=== PATIENT | female | born 1975 ===

== ENCOUNTER 2018-11-14 21:03 | Emergency (ER) | payer OTHER ==
[~2018-11-14] VITALS: Ht 175.3 cm; Wt 100.7 kg
--- NOTE | 2018-11-14 21:36 | NUR ---
BIBS. C/O "[facility]F FEW DAYS AGO. BEEN FEELING DIZZY. LEFT AMA FROM [facility]"AOX4. +DIZZY NOTED. -N/V/D. VSS
[2018-11-14] MEDS ORDERED: IPRATROPIUM NEB FS 0.5 MG/2.5 ML AMPUL.NEB NEB ONE (22:00)
[2018-11-14] MEDS ORDERED: ALBUTEROL FS 2.5 MG/3 ML VIAL.NEB NEB ONE (22:00)
[2018-11-14] MEDS ORDERED: ALBUTEROL FS 2.5 MG/3 ML VIAL.NEB ONE (22:07)
[2018-11-14] MEDS ORDERED: IPRATROPIUM NEB FS 0.5 MG/2.5 ML AMPUL.NEB ONE (22:07)
[2018-11-14] MEDS ORDERED: KETOROLAC TROMETHAMINE INJ 60 MG/2 ML VIAL IM ONE (23:00)
[2018-11-14] MEDS ORDERED: KETOROLAC TROMETHAMINE INJ 30 MG/ML VIAL ONE (23:03)
[2018-11-15 01:12] LABS: BASOPHILS # (AUTO) 0.1 /CMM (0.0-0.2); BASOPHILS % (AUTO) 0.8 % (0.0-2.0); EOSINOPHILS % (AUTO) 1.8 % (0.0-6.0); HEMATOCRIT 40 % (33-45); LYMPHOCYTES # (AUTO) 1.8 /CMM (0.8-4.8); MEAN CORPUSCULAR HGB CONC 33 g/dl (31.0-36.0); MEAN CORPUSCULAR VOLUME 84 fL (82-100); MONOCYTES # (AUTO) 0.6 /CMM (0.1-1.30); MONOCYTES % (AUTO) 8.3 % (2.0-12.0); NEUTROPHILS % (AUTO) 65.1 % (43.0-81.0); PLATELET COUNT (AUTO) 421 /CMM (150-450); RED BLOOD CELL COUNT(AUTO) 4.76 MIL/uL (4.0-5.2); WHITE BLOOD COUNT (AUTO) 7.6 K/uL (4.3-11.0)
[2018-11-15 01:20] LABS: ALBUMIN 2.9 g/dL (3.4-5.0); BILIRUBIN,TOTAL 0.2 mg/dL (0.2-1.0); TOTAL PROTEIN, SERUM 7.5 g/dL (6.4-8.2)
[2018-11-15 01:29] LABS: CALCIUM, SERUM 8.7 mg/dL (8.5-10.1); CREATININE 1.1 mg/dL (0.6-1.3)
[2018-11-15 03:36] VITALS: BP 137/71
== END 2018-11-15 03:36 | disposition home or self-care (01) ==
LOC: ER 21:05
DX: S09.8XXA Other specified injuries of head, initial encounter (principal); M54.9 Dorsalgia, unspecified; M54.2 Cervicalgia; J45.909 Unspecified asthma, uncomplicated; E11.9 Type 2 diabetes mellitus without complications; F41.9 Anxiety disorder, unspecified; G43.909 Migraine, unspecified, not intractable, without status migrainosus; R42 Dizziness and giddiness; D25.9 Leiomyoma of uterus, unspecified; Z86.711 Personal history of pulmonary embolism; Z90.89 Acquired absence of other organs; Z88.1 Allergy status to other antibiotic agents; Z59.0 Homelessness; Z88.8 Allergy status to other drugs, medicaments and biological substances; Z88.9 Allergy status to unspecified drugs, medicaments and biological substances; W01.0XXA Fall on same level from slipping, tripping and stumbling without subsequent striking against object, initial encounter; Y93.89 Activity, other specified; Y92.89 Other specified places as the place of occurrence of the external cause; Y99.8 Other external cause status
CPT/HCPCS: 36415; 70450; 70490; 71045; 72131; 80048; 80076; 85025; 85378; 94644; 96372; 99285; J1885